=== PATIENT | male | born 1965 | race Caucasian/White ===

== ENCOUNTER 2022-05-11 19:51 | Emergency (ER) | payer BC, SELFPAY ==
--- NOTE | 2022-05-11 19:45 | RT.EKG_ITS ---
APPROVED REPORT Exam: Resting ECG Reason for Exam: chest pain Patient Location: E HR:53 bpm ECG Measurements Heart Rate 53 AXIS SD 164 P 40 QRSd 104 QRS 80 QT 407 T 63 QTc 383 Conclusion Sinus bradycardia...rate< 60 ST elevation, consider inferior injury...ST >0.08mV, II III aVF Physician: no stemi
[2022-05-11 19:55] VITALS: BP 124/88; PULSE 58; RESP 16; TEMP 37.1; O2SAT 100
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
[2022-05-11 20:20] VITALS: BP 125/85; PULSE 56; PULSE 58; O2SAT 100
[2022-05-11 20:37] LABS: Abs Immature Grans 0.04 10^3/uL (0.0-0.06); Absolute Basophil Count 0.05 10^3/uL (0.0-0.2); Absolute Eosinophil Count 0.16 10^3/uL (0.0-0.7); Absolute Lymphocyte Count 1.45 10^3/uL (1.2-3.4); Absolute Monocyte Count 0.82 10^3/uL (0.1-0.8); Absolute Neutrophil Count 6.64 10^3/uL (1.2-6.7); Basophils % 0.5; Eosinophils % 1.7; HCT 40.4 % (40.0-50.0); HGB 13.2 g/dL (13.5-17.5); Immature Grans % 0.4; Lymphocytes % 15.8; MCH 29.7 pg (27.0-33.0); MCHC 32.7 % (32.0-36.0); MCV 91 fL (80-95); MPV 9.7 fL (8.0-11.0); Neutrophils % 72.6; Platelet Count 233 10^3/uL (130-400); RBC 4.45 10^6/uL (4.36-5.78); RDW 13.1 % (11.8-14.1); RDW-SD 43.8 fL; WBC 9.16 10^3/uL (4.4-10.8)
[2022-05-11] MEDS: Omnipaque 350 MG/ML 100 ML BTL IJ (20:40)
[2022-05-11] MEDS: Normal Saline - Diluent 50 ML VIAL IJ (20:41)
[2022-05-11] MEDS: Normal Saline Flush 10 ML SYR IVP (20:42)
[2022-05-11 20:52] LABS: INR 1.1 (0.9-1.1); PTT Activated 23.1 sec (21.0-27.5); Prothrombin Time 10.6 sec (9.3-11.0)
[2022-05-11] MEDS: Normal Saline 500 ML IV (20:54)
[2022-05-11 20:55] LABS: ALT 18 U/L (16-63); AST 22 U/L (15-37); Albumin 3.9 g/dL (3.4-5.0); Alkaline Phosphatase 52 U/L (46-116); Anion Gap 5.5 mmol/L (3-11); BUN 19 mg/dL (7-18); Bilirubin, Total 0.4 mg/dL (0.2-1.0); CO2 30.5 mmol/L (21.0-32.0); CREATININE 1.3 mg/dL (0.70-1.30); Calcium 8.7 mg/dL (8.5-10.1); Chloride 103 mmol/L (98-107); Estimated GFR 63.68 (mL/min/1.73m2); Glucose 99 mg/dL (74-106); Potassium 4.4 mmol/L (3.5-5.1); Sodium 139 mmol/L (136-145); Total Protein 7.3 g/dL (6.4-8.2); Troponin I < 50 ng/L (<or=60)
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
[2022-05-11 21:20] VITALS: PULSE 72; RESP 15; O2SAT 100
--- NOTE | 2022-05-11 21:30 | RT.EKG_ITS ---
APPROVED REPORT Exam: Resting ECG Reason for Exam: chest pain Patient Location: E HR:59 bpm ECG Measurements Heart Rate 59 AXIS FL 171 P 25 QRSd 96 QRS 82 QT 399 T 68 QTc 396 Conclusion Sinus bradycardia...rate< 60 Physician: no stemi. stable
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
[2022-05-11] MEDS: Ibuprofen 800 MG TAB PO (21:49)
[2022-05-11] MEDS: Acetaminophen 500 MG TAB 1000 MG PO (21:49)
[2022-05-11] MEDS: Lidocaine 5% Patch 1 PATCH TP (21:49)
[2022-05-11 22:12] VITALS: BP 128/72; PULSE 62; RESP 16; TEMP 36.8; O2SAT 100
== END 2022-05-11 21:54 | disposition home or self-care (01) ==
PROVIDERS: Emergency Provider Student in an Organized Health Care Education/Training Program
DX: S22.20XA Unspecified fracture of sternum, initial encounter for closed fracture (principal); S80.11XA Contusion of right lower leg, initial encounter; W22.8XXA Striking against or struck by other objects, initial encounter; V89.2XXA Person injured in unspecified motor-vehicle accident, traffic, initial encounter
CPT/HCPCS: 36415; 76604; 76705; 76857; 80053; 93005; 96360; 99285; 71260; 84484; 85025; 85610; 85730; 93010; J3490